=== PATIENT | female | born 1980 | race Two or more races ===

== ENCOUNTER 2016-11-27 18:06 | Emergency (ER) | payer MEDICAID, OTHER ==
[~2016-11-27] VITALS: Ht 162.6 cm; Wt 77.1 kg
[2016-11-27 20:06] LABS: Urine RBC None Seen /hpf (0 - 4)
[2016-11-27 22:48] LABS: Urine Bilirubin Negative (Negative); Urine Blood Negative /uL (Negative); Urine Color Yellow (Yellow); Urine Glucose Normal (Normal); Urine Mucus FEW (None Seen); Urine Nitrite Negative (Negative); Urine Squamous Epithelial Cell FEW /hpf (<5); Urine Urobilinogen Normal (Negative); Urine pH 5.5 (5.0-8.0)
[2016-11-27 23:00] LABS: Urine Ketone 2+ (Negative)
[2016-11-28] MEDS ORDERED: ACETAMINOPHEN/CODEINE#3 (300/30mg) TAB PO ONE (02:00)
[2016-11-28 06:31] VITALS: BP 105/61
== END 2016-11-28 06:31 | disposition home or self-care (01) ==
LOC: ER 18:11
DX: O26.891 Other specified pregnancy related conditions, first trimester (principal); R51 Headache; M54.2 Cervicalgia; R10.2 Pelvic and perineal pain; Z3A.12 12 weeks gestation of pregnancy; Z88.8 Allergy status to other drugs, medicaments and biological substances; V43.52XA Car driver injured in collision with other type car in traffic accident, initial encounter; Y93.89 Activity, other specified; Y99.8 Other external cause status; Y92.89 Other specified places as the place of occurrence of the external cause
CPT/HCPCS: 36415; 76801; 81001; 84702